=== PATIENT | female | born 1980 | race Hispanic/Latino ===

== ENCOUNTER 2020-07-19 19:09 | Inpatient (IN) | payer OTHER ==
[~2020-07-19] VITALS: Ht 157.5 cm; Wt 107.3 kg
[2020-07-19] MEDS ORDERED: ONDANSETRON HCL 4 MG/2 ML VIAL ONE (19:42)
[2020-07-19] MEDS ORDERED: ACETAMINOPHEN EXTRA STRENGTH 500 MG TABLET ONE (19:43)
[2020-07-19] MEDS ORDERED: SODIUM CHLORIDE 0.9% 1000ML 1,000 ML IV ONE ×2 (19:43→19:55)
[2020-07-19] MEDS ORDERED: MORPHINE SULFATE 4 MG/1ML SYG ONE (19:44)
[2020-07-19 19:48] LABS: BASOPHILS % (AUTO) 0.3 % (0.0-5.0); EOSINOPHILS % (AUTO) 0.1 % (0.0-8.0); HEMATOCRIT 35.7 % (36-48); LYMPHOCYTES % (AUTO) 11.7 % (21.0-51.0); MEAN CORPUSCULAR HEMOGLOBIN 24.4 pg (27.0-33.0); MEAN CORPUSCULAR HGB CONC 31.7 g/dL (32.0-36.0); MEAN CORPUSCULAR VOLUME 77.1 fL (79-99); MONOCYTES % (AUTO) 4.7 % (3.0-13.0); NEUTROPHILS % (AUTO) 82.7 % (40.0-77.0); PLATELET COUNT (AUTO) 507 K/uL (130-400); RED BLOOD CELL COUNT(AUTO) 4.63 MIL/uL (4.00-5.50); RED CELL DISTRIBUTION WIDTH 14.6 % (11.0-15.5); WHITE BLOOD COUNT (AUTO) 18.3 K/uL (4.8-10.8)
[2020-07-19] MEDS ORDERED: ZOSYN 3.375GM+NS 50ML 50 ML IV ONE (19:55)
[2020-07-19 19:59] LABS: CREATININE 0.7 mg/dL (0.5-1.5); POTASSIUM 3.5 mmol/L (3.5-5.1)
[2020-07-19 20:00] LABS: APPEARANCE,URINE Clear (CLEAR); BILIRUBIN,URINE Negative (NEGATIVE); COLOR,URINE Yellow (YELLOW); GLUCOSE, URINE (UA) >=1000 mg/dL (NEGATIVE); KETONES,URINE Negative (NEGATIVE); LEUKOCYTE ESTERASE ,URINE Trace (NEGATIVE); NITRATE,URINE Negative (NEGATIVE); OCCULT BLOOD,URINE Negative (NEGATIVE); PH,URINE 5.5 (5.0-8.0); PROTEIN,URINE Negative (NEGATIVE)
[2020-07-19 20:03] LABS: HCG,QUAL RESULT NEGATIVE (NEGATIVE)
[2020-07-19 20:03] LABS: ALBUMIN 3.4 g/dL (3.5-5.0); BILIRUBIN,TOTAL 0.7 mg/dL (0.2-1.0); TOTAL PROTEIN, SERUM 8.3 g/dL (6.0-8.3)
[2020-07-19 20:07] LABS: BACTERIA,URINE Few /HPF (None Seen); MUCUS,URINE Moderate LPF (None Seen); SQUAMOUS EPITHELIAL CELL,UR Moderate /HPF (0-2)
[2020-07-19] MEDS ORDERED: DIPHENHYDRAMINE HCL 25 MG CAPSULE PO PRN (22:45)
[2020-07-19] MEDS ORDERED: NITROGLYCERIN 0.4 MG SL TAB SL PRN (22:45)
[2020-07-19] MEDS ORDERED: ONDANSETRON HCL 4 MG/2 ML VIAL IV PRN (22:45)
[2020-07-19] MEDS ORDERED: ACETAMINOPHEN 325 MG TAB PO PRN ×2 (22:45)
[2020-07-19 22:58] LABS: INR 0.99 (0.85-1.15); PARTIAL THROMBOPLASTIN TIME 26.7 SEC (26.3-35.5); PROTHROMBIN TIME 10.7 SEC (9.6-11.6)
[2020-07-19 23:01] LABS: HEMOGLOBIN A1C 11.6 % (4.0-6.0)
[2020-07-20] VITALS (29 sets, daily range): BP systolic 115–156; BP diastolic 70–98
--- NOTE | 2020-07-20 01:55 | NUR ---
ADMIT NOTE ADMIT TO ROOM 315 VIA STRETCHER FROM ER. PATIENT AWAKE, ALERT, OX3, NO SOB NO C/O PAIN AT THIS TIME, TEACH PATIENT PLAN OF CARE AND EXPECTED OUTCOME, NPO STATUS, IVF INFUSING WELL ORDERED, PATIENT VERBALIZES UNDERSTANDING VIA TEACH BACK
[2020-07-20] MEDS ORDERED: MORPHINE SULFATE 2 MG/ML 1ML SYG ONE (02:19)
[2020-07-20] MEDS: SODIUM CHLORIDE 0.9% 1000ML 1,000 ML IV SCH ×3 (02:27→18:27)
[2020-07-20] MEDS ORDERED: DEXTROSE 50%-WATER 50 ML DISP.SYRIN IV PRN (02:45)
[2020-07-20] MEDS ORDERED: GLUCAGON 1MG KIT 1 MG ML IM PRN (02:45)
[2020-07-20] MEDS: ZOSYN 3.375GM+NS 50ML 50 ML IV SCH ×3 (04:13→19:59)
[2020-07-20 05:14] LABS: BASOPHILS % (AUTO) 0.2 % (0.0-5.0); EOSINOPHILS % (AUTO) 0.1 % (0.0-8.0); LYMPHOCYTES % (AUTO) 18.2 % (21.0-51.0); MEAN CORPUSCULAR HEMOGLOBIN 23.9 pg (27.0-33.0); MEAN CORPUSCULAR HGB CONC 30.9 g/dL (32.0-36.0); MEAN CORPUSCULAR VOLUME 77.1 fL (79-99); MONOCYTES % (AUTO) 5.4 % (3.0-13.0); NEUTROPHILS % (AUTO) 75.8 % (40.0-77.0); PLATELET COUNT (AUTO) 405 K/uL (130-400); RED BLOOD CELL COUNT(AUTO) 4.15 MIL/uL (4.00-5.50); RED CELL DISTRIBUTION WIDTH 14.6 % (11.0-15.5); WHITE BLOOD COUNT (AUTO) 13.6 K/uL (4.8-10.8)
[2020-07-20 05:40] LABS: ALBUMIN 2.7 g/dL (3.5-5.0); BILIRUBIN,TOTAL 0.7 mg/dL (0.2-1.0); CREATININE 0.6 mg/dL (0.5-1.5); MAGNESIUM 1.6 mg/dL (1.80-2.40); POTASSIUM 3.4 mmol/L (3.5-5.1)
[2020-07-20] MEDS: INSULIN HUMULIN R 100 UNIT/ML 3ML SQ SCH ×4 (06:57→21:00)
[2020-07-20] MEDS: MORPHINE SULFATE 2 MG/ML 1ML SYG IV PRN ×2 (07:25→19:59)
[2020-07-20] MEDS: FAMOTIDINE/PF 20 MG/2 ML VIAL IV SCH ×2 (10:03→19:59)
--- NOTE | 2020-07-20 14:30 | NUR ---
DC CM met with pt and spouse in room discussed dc plans. Pt is independent prior to admission, lives at home with spouse and children 19, 16, and 8 y/o. Denies any equipments/services. Feels safe to go back home, spouse able to assist with transportation and needs, pt verbalized no SS# and insurance, [facility] assisting, given community [employer] packet. DC plan to home once stable. CM to continue to follow up. Addendum: 07/20/20 at 1432 by STEVIE RASHEED LVN CM Amended: Links added.
[2020-07-20] MEDS ORDERED: BUPIVACAINE/PF 0.5% 30ML VIAL ONE (15:45)
--- NOTE | 2020-07-20 15:59 | NUR ---
RD NOTIFICATION Pt admitted with acute appendicitis. Pt is NPO pending procedure at time of screen. New onset Diabetes. Previous poor appetite. Pt monitored labs: HgbA1C 11.6, BG 157, Mg 1.60, Ca 8.3, AST 46, Alb 2.7, K 3.4. Obesity Class III. Recommend advance diet as tolerate to GI Soft [place], 75gm CC, post procedure, as medically feasible. RD to follow up with Nutrition Education. Education handouts placed in Pt chart. Addendum: 07/20/20 at [address] RD Amended: Links added.
--- NOTE | 2020-07-20 16:02 | NUR ---
NUTRITION EDUCATION Pt NPO pending Procedure. Therefore education handouts placed in Pt chart. RD to follow up with nutrition education. Addendum: 07/20/20 at [address] RD Amended: Links added.
[2020-07-20] MEDS ORDERED: MIDAZOLAM HCL 1 MG/ML 2ML VIAL ONE (16:05)
[2020-07-20] MEDS ORDERED: LIDOCAINE PF 2% 5ML ABBOJECT ONE (16:05)
[2020-07-20] MEDS ORDERED: DEXAMETHASONE SOD PHOSPHATE 10MG/ML 1ML VIAL ONE (16:05)
[2020-07-20] MEDS ORDERED: ONDANSETRON HCL 4 MG/2 ML VIAL ONE (16:05)
[2020-07-20] MEDS ORDERED: PROPOFOL 10 MG/ML 20ML VIAL IV ONE (16:06)
[2020-07-20] MEDS ORDERED: FENTANYL CITRATE PF 50 MCG/1 ML 2ML VIAL ONE (16:06)
[2020-07-20] MEDS ORDERED: NEOSTIGMINE 5MG/5ML SYR IV ONE (16:44)
[2020-07-20] MEDS ORDERED: GLYCOPYRROLATE 1 MG/5 ML SYRINGE ONE (16:44)
[2020-07-20] MEDS ORDERED: MORPHINE SULFATE 4 MG/1ML SYG IV PRN (18:45)
[2020-07-21 03:30] VITALS: BP 141/86
[2020-07-21] MEDS: ZOSYN 3.375GM+NS 50ML 50 ML IV SCH ×2 (03:59→11:43)
[2020-07-21] MEDS: SODIUM CHLORIDE 0.9% 1000ML 1,000 ML IV SCH ×2 (04:00→14:45)
[2020-07-21] MEDS: MORPHINE SULFATE 2 MG/ML 1ML SYG IV PRN (04:14)
--- NOTE | 2020-07-21 04:14 | NUR ---
PAIN PT C/O OF ABD PAIN. ADMIN PAIN MED PER MAR PAIN SCALE. PT NICOLLE WELL. WILL CONTINUE TO MONITOR PT. PT ENCOURAGED TO CALL FOR ASSISTANCE BEFORE GETTING OUT OF BED- PT VERBALIZED AGREEMENT. CALL LIGHT ON BED, WITHIN REACH.
[2020-07-21] MEDS: INSULIN HUMULIN R 100 UNIT/ML 3ML SQ SCH ×2 (05:23→11:52)
[2020-07-21 05:51] LABS: BASOPHILS % (AUTO) 0.5 % (0.0-5.0); EOSINOPHILS % (AUTO) 0.3 % (0.0-8.0); HEMATOCRIT 31.1 % (36-48); LYMPHOCYTES % (AUTO) 23.6 % (21.0-51.0); MEAN CORPUSCULAR HEMOGLOBIN 23.9 pg (27.0-33.0); MEAN CORPUSCULAR HGB CONC 30.2 g/dL (32.0-36.0); MEAN CORPUSCULAR VOLUME 78.9 fL (79-99); MONOCYTES % (AUTO) 7.3 % (3.0-13.0); PLATELET COUNT (AUTO) 361 K/uL (130-400); RED BLOOD CELL COUNT(AUTO) 3.94 MIL/uL (4.00-5.50); WHITE BLOOD COUNT (AUTO) 9.5 K/uL (4.8-10.8)
[2020-07-21 06:00] LABS: CREATININE 0.6 mg/dL (0.5-1.5); POTASSIUM 3.5 mmol/L (3.5-5.1)
[2020-07-21 08:00] VITALS: BP 138/89
[2020-07-21] MEDS: FAMOTIDINE/PF 20 MG/2 ML VIAL IV SCH (08:40)
[2020-07-21] MEDS ORDERED: POTASSIUM CHLORIDE 10% ELIXIR 20 MEQ/15 ML UDCUP PO PRN (08:45)
[2020-07-21 11:36] VITALS: BP 129/86
[2020-07-21] MEDS: POTASSIUM CHLORIDE 20 MEQ ERTAB PO PRN ×2 (11:44→14:20)
[2020-07-21 15:43] VITALS: BP 125/82
--- NOTE | 2020-07-21 16:07 | NUR ---
DISCHARGE DISCHARGE INSTRUCTIONS GIVEN TO PATIENT, VERBALIZED UNDERSTANDING. EDUCATED PATIENT ON DIABETES MANAGEMENT. INFORMATION PRINTED IN [place]. EXPLAINED TO PATIENT THE IMPORTANCE OF MANAGING DIABETES AND FINDING A PRIMARY CARE PHYSICIAN. IV REMOVED, TELEPAK DISCONTINUED.
== END 2020-07-21 16:10 | disposition home or self-care (01) | DRG 854 ==
LOC: EDH 19:09 → EDHIP 19:10 → 3CH 07-20 02:05
PROVIDERS: ADMIT Internal Medicine; ATTEND Internal Medicine
PROC: 0DTJ4ZZ Resection of Appendix, Percutaneous Endoscopic Approach (ICD-10-PCS; principal; 2020-07-20 16:10)
DX: A41.9 Sepsis, unspecified organism (principal); K35.80 Unspecified acute appendicitis; Z68.41 Body mass index [BMI] 40.0-44.9, adult; K80.20 Calculus of gallbladder without cholecystitis without obstruction; E66.01 Morbid (severe) obesity due to excess calories; K76.0 Fatty (change of) liver, not elsewhere classified; E11.9 Type 2 diabetes mellitus without complications; Z20.828 Contact with and (suspected) exposure to other viral communicable diseases; R16.0 Hepatomegaly, not elsewhere classified; K42.9 Umbilical hernia without obstruction or gangrene; Z83.3 Family history of diabetes mellitus; Z82.49 Family history of ischemic heart disease and other diseases of the circulatory system
CPT/HCPCS: 36415; 74176; 76705; 80048; 80053; 81001; 81025; 82948; 83036; 83605; 83690; 83735; 85025; 85610; 85730; 87040; 87088; 87426; 93005; A4344; G0378; J1100; J1815; J2001; J2250; J2270; J2405; J2543; J2704; J2710; J3010; J3490; J7030; U0003